=== PATIENT | female | born 1990 | race Caucasian/White ===

== ENCOUNTER 2018-05-16 14:39 | Emergency (ER) | payer MEDICAID ==
[~2018-05-16] VITALS: Ht 162.6 cm; Wt 121.7 kg
[2018-05-16 14:55] VITALS: BP 110/89
[2018-05-16] MEDS ORDERED: NACL 0.9% 500 ML IV ONE (15:21)
[2018-05-16] MEDS ORDERED: LIDOCAINE 1% 500 MG/50 ML VIAL INJ SCH (15:40)
[2018-05-16 16:11] VITALS: BP 110/89
== END 2018-05-16 16:12 | disposition home or self-care (01) ==
LOC: MED 14:39
DX: O99.712 Diseases of the skin and subcutaneous tissue complicating pregnancy, second trimester (principal); J86.9 Pyothorax without fistula; Z3A.18 18 weeks gestation of pregnancy
CPT/HCPCS: 10060; 36415; 81002; 81025; 99283; J2001

== ENCOUNTER 2021-02-21 16:38 | Emergency (ER) | payer MEDICAID, OTHER ==
[~2021-02-21] VITALS: Ht 162.6 cm; Wt 127.0 kg
[2021-02-21 17:28] VITALS: BP 124/68
[2021-02-21 18:26] LABS: BASOPHILS % (AUTO) 0.5 % (0.0-2.0); EOSINOPHILS # (AUTO) 0.2 K/uL (0-0.4); EOSINOPHILS % (AUTO) 1.7 % (0.0-4.0); HEMATOCRIT 37.5 % (36-48); HEMOGLOBIN 12.7 g/dL (12.0-16.0); LYMPHOCYTES # (AUTO) 1.2 K/uL (2.5-16.5); MEAN CORPUSCULAR HEMOGLOBIN 30 pg (27-31); MEAN CORPUSCULAR HGB CONC 34 g/dL (33-37); MEAN CORPUSCULAR VOLUME 87.6 fL (80-94); MONOCYTES # (AUTO) 0.5 K/uL (0.8-1.0); MONOCYTES % (AUTO) 5.4 % (1.7-9.3); NEUTROPHILS # (AUTO) 7.8 K/uL (1.8-7.7); NEUTROPHILS % (AUTO) 80.4 % (42.2-75.2); PLATELET COUNT (AUTO) 396 K/uL (140-450); RED BLOOD CELL COUNT(AUTO) 4.28 MIL/uL (4.20-5.40); WHITE BLOOD COUNT (AUTO) 9.8 K/uL (4.8-10.8)
[2021-02-21 18:37] LABS: ANION GAP 12.3 (8-16); CARBON DIOXIDE 25.7 mmol/L (21-32); CREATININE 0.9 mg/dL (0.6-1.3)
--- NOTE | 2021-02-21 20:29 | NUR ---
Patient discharged with v/s stable. Written and verbal after care instructions given and explained. Patient verbalized understanding. Ambulatory with steady gait. All questions addressed prior to discharge. Advised to follow up with PMD.
== END 2021-02-21 20:28 | disposition home or self-care (01) ==
LOC: MED 16:38
DX: R20.2 Paresthesia of skin (principal); R03.0 Elevated blood-pressure reading, without diagnosis of hypertension
CPT/HCPCS: 36415; 80048; 81025; 84484; 85025; 93005; 99284

== ENCOUNTER 2021-08-20 12:27 | Emergency (ER) | payer OTHER ==
[~2021-08-20] VITALS: Ht 162.6 cm; Wt 122.9 kg
[2021-08-20 12:53] VITALS: BP 157/77
[2021-08-20 16:35] VITALS: BP 157/77
== END 2021-08-20 16:35 | disposition home or self-care (01) ==
LOC: MED 12:27
DX: G44.209 Tension-type headache, unspecified, not intractable (principal); R07.89 Other chest pain; R20.0 Anesthesia of skin
CPT/HCPCS: 71045; 93005; 99283